=== PATIENT | female | born 1945 | race Caucasian/White ===

== ENCOUNTER 2018-02-26 17:29 | Inpatient (IN) | payer MEDICARE, BC ==
[~2018-02-26] VITALS: Ht 162.6 cm; Wt 90.0 kg
[2018-02-26] VITALS (9 sets, daily range): BP systolic 103–211; BP diastolic 64–97; PULSE 74–85; RESP 18–20; TEMP 97.2–98.4; O2SAT 96–99
--- NOTE | 2018-02-26 17:55 | PD ---
HPI Chief Complaint: Fall Time Seen by Provider: 17:45 Travel History International Travel<30 days: No Contact w/Intl Traveler<30days: No Traveled to known affect area: No History of Present Illness HPI 72-year-old female presents via EMS for evaluation after a reported fall. Reportedly the patient slipped on the wet tile pool deck and fell backwards, hitting the back of her head against the ground. There was reported loss of consciousness and reportedly per EMS there is initial repetitive questioning which has since resolved. The patient is very hard of hearing. She is complaining of pain in her lower back and head. Pain is aggravated by falling. She denies any pain in her neck, chest, abdomen, shortness of breath, pain in the extremities. Last tetanus vaccination unknown. [facility] Social History Tobacco Use: No Allergies-Medications (Allergen,Severity, Reaction): Coded Allergies: No Known Allergies (Unverified , 02/26/18) Reported Meds & Prescriptions Reported Meds & Active Scripts Active Reported Tramadol (Tramadol HCl) 50 Mg Tab 50 Mg PO Q6H PRN Xanax (Alprazolam) 0.5 Mg Tab 0.5 Mg PO DAILY PRN Lisinopril 10 Mg Tab 10 Mg PO DAILY Fluoxetine (Fluoxetine HCl) 10 Mg Tab 10 Mg PO DAILY Review of Systems Except as stated in HPI: all other systems reviewed are Neg Physical Exam Narrative GENERAL: Well-developed well-nourished female no acute distress cervical collar in place laying on backboard. The patient was logrolled off the backboard using spinal precautions. SKIN: Warm and dry. There is matted blood to the occipital scalp. HEAD: Skin as noted above. Normocephalic. EYES: Pupils equal and round. No scleral icterus. No injection or drainage. ENT: No nasal bleeding or discharge. Mucous membranes pink and moist. NECK: Trachea midline. No JVD. CARDIOVASCULAR: Regular rate and rhythm. No murmur appreciated. RESPIRATORY: No accessory muscle use. Clear to auscultation. Breath sounds equal bilaterally. GASTROINTESTINAL: Abdomen soft, non-tender, nondistended. Hepatic and splenic margins not palpable. MUSCULOSKELETAL: No obvious deformities. NEUROLOGICAL: Awake and alert. No obvious cranial nerve deficits. Motor grossly within normal limits. Normal speech. Data Data Last Documented VS Vital Signs Date Time Temp Pulse Resp B/P (MAP) Pulse Ox O2 Delivery O2 Flow Rate FiO2 02/26/18 19:30 80 18 183/72 (109) 98 Room Air 02/26/18 17:34 97.2 Orders Orders Basic Metabolic Panel (Bmp) (02/26/18 17:50) Complete Blood Count With Diff (02/26/18 17:50) Prothrombin Time / Inr (Pt) (02/26/18 17:50) Act Partial Throm Time (Ptt) (02/26/18 17:50) Type And Screen (02/26/18 17:50) Ct Brain W/O Iv Contrast(Rout) (02/26/18 17:50) Ct Cerv Spine W/O Contrast (02/26/18 17:50) Iv Access Insert/Monitor (02/26/18 17:50) Pelvis, Ap Only (Routine) (02/26/18 ) Spine, Lumbar - Ltd (Ap & Lat) (02/26/18 ) Lidocai-Epi 1%-1:100,000 Inj (Xylocaine- (02/26/18 18:00) Labetalol Inj (Trandate Inj) (02/26/18 18:00) Tetanus/Diphtheria Tox Adult (Tetanus/Di (02/26/18 18:00) Nicardipine Inj (Cardene Inj) (02/26/18 18:45) Consult Neurosurgery (02/26/18 ) Admit Order (Ed Use Only) (02/26/18 19:26) Labs Laboratory Tests Test 02/26/18 18:13 White Blood Count 9.8 TH/MM3 Red Blood Count 4.80 MIL/MM3 Hemoglobin 13.3 GM/DL Hematocrit 40.6 % Mean Corpuscular Volume 84.6 FL Mean Corpuscular Hemoglobin 27.7 PG Mean Corpuscular Hemoglobin Concent 32.8 % Red Cell Distribution Width 15.9 % Platelet Count 197 TH/MM3 Mean Platelet Volume 9.3 FL Neutrophils (%) (Auto) 68.2 % Lymphocytes (%) (Auto) 18.9 % Monocytes (%) (Auto) 9.9 % Eosinophils (%) (Auto) 2.5 % Basophils (%) (Auto) 0.5 % Neutrophils # (Auto) 6.7 TH/MM3 Lymphocytes # (Auto) 1.9 TH/MM3 Monocytes # (Auto) 1.0 TH/MM3 Eosinophils # (Auto) 0.2 TH/MM3 Basophils # (Auto) 0.0 TH/MM3 CBC Comment DIFF FINAL Differential Comment Prothrombin Time 10.7 SEC Prothromb Time International Ratio 1.1 RATIO Activated Partial Thromboplast Time 23.8 SEC Blood Urea Nitrogen 24 MG/DL Creatinine 0.72 MG/DL Random Glucose 130 MG/DL Calcium Level 9.3 MG/DL Sodium Level 141 MEQ/L Potassium Level 4.5 MEQ/L Chloride Level 106 MEQ/L Carbon Dioxide Level 29.2 MEQ/L Anion Gap 6 MEQ/L Estimat Glomerular Filtration Rate 80 ML/MIN MDM Medical Decision Making Medical Screen Exam Complete: Yes Emergency Medical Condition: Yes Medical Record Reviewed: Yes Differential Diagnosis Closed head injury, intracranial hemorrhage, skull fracture, scalp laceration Narrative Course CT imaging of the brain, cervical spine, x-ray of the lumbar spine and pelvis have been ordered. Lab work has been ordered. The patient is hypertensive, IV labetalol ordered. Tetanus status updated. CT the brain reveals a thin left subdural hematoma. Cardene drip has been ordered. Neurosurgery page has been placed. At the end of my shift the patient was signed out to the oncoming provider. Saad Camp Feb 26, 2018 17:55
[2018-02-26] MEDS ORDERED: LABETALOL HCL 100 MG/20 ML VIAL IV PUSH ONE (18:00)
[2018-02-26] MEDS ORDERED: LIDOCAINE 1%/EPINEPHrine 1:100,000 SOLN 20 ML VIAL INFIL ONE (18:00)
[2018-02-26] MEDS ORDERED: TETANUS/DIPHTHERIA TOXOID ADULT 0.5 ML VIAL IM ONE (18:00)
[2018-02-26] MEDS ORDERED: ALPR.5 PO (18:21)
[2018-02-26] MEDS ORDERED: FLUO10TA PO (18:21)
[2018-02-26] MEDS ORDERED: LISI10TA3 PO (18:21)
[2018-02-26] MEDS ORDERED: TRAM50TA PO (18:21)
[2018-02-26 18:22] LABS: AUTOMATED NEUTROPHIL # 6.7 TH/MM3 (1.8-7.7); BASOPHIL % 0.5 % (0.0-2.0); EOSINOPHIL # 0.2 TH/MM3 (0-0.4); EOSINOPHIL % 2.5 % (0.0-4.0); HEMATOCRIT 40.6 % (35.0-46.0); HEMOGLOBIN 13.3 GM/DL (11.6-15.3); LYMPH % 18.9 % (9.0-44.0); LYMPHOCYTE # 1.9 TH/MM3 (1.0-4.8); MEAN CELL VOLUME 84.6 FL (80.0-100.0); MEAN CORPUSCULAR HEMOGLOBIN 27.7 PG (27.0-34.0); MEAN CORPUSCULAR HGB CONC 32.8 % (32.0-36.0); MEAN PLATELET VOLUME 9.3 FL (7.0-11.0); MONO % 9.9 % (0.0-8.0); NEUT % 68.2 % (16.0-70.0); PLATELET COUNT 197 TH/MM3 (150-450); RED CELL DISTRIBUTION WIDTH 15.9 % (11.6-17.2); WHITE BLOOD COUNT 9.8 TH/MM3 (4.0-11.0)
[2018-02-26 18:33] LABS: INTERNATIONAL NORMALIZED RATIO 1.1 RATIO; PROTHROMBIN TIME - PATIENT 10.7 SEC (9.8-11.6)
[2018-02-26 18:45] LABS: BICARBONATE 29.2 MEQ/L (21.0-32.0); CALCIUM 9.3 MG/DL (8.5-10.1); CREATININE 0.72 MG/DL (0.50-1.00)
[2018-02-26] MEDS ORDERED: niCARdipine INJ 25 MG in SODIUM CHLOR 0.9% 250 ML INJ 240 ML IV ONE (18:45)
--- NOTE | 2018-02-26 18:50 | RADRPT ---
EXAM DATE/TIME: 02/26/2018 18:13 [facility] COMPARISON: No previous studies available for comparison. INDICATIONS : Trauma; fall. RADIATION DOSE: 66.34 CTDIvol (mGy) MEDICAL HISTORY : None SURGICAL HISTORY : None. ENCOUNTER: Initial ACUITY: 1 day PAIN SCALE: 7/10 LOCATION: cranial TECHNIQUE: Multiple contiguous axial images were obtained of the head. Using automated exposure control and adj ustment of the mA and/or kV according to patient size, radiation dose was kept as low as reasonably a chievable to obtain optimal diagnostic quality images. DICOM format image data is available electro nically for review and comparison. FINDINGS: There is a very thin left frontal and temporal subdural hematoma. No significant associated mass effe ct. No evidence of drainable hemorrhage. Patchy diminished attenuation in deep white matter is likely microvascular ischemic. There is no evidence of brain mass. There is no evidence suggest acute infar ction. There is no evidence of skull fracture. There is right lateral periorbital soft tissue swelling. CONCLUSION: Thin left subdural hematoma Giacomo Funes MD on February 26, 2018 at 18:45 Board Certified Radiologist. This report was verified electronically.
--- NOTE | 2018-02-26 18:55 | RADRPT ---
EXAM DATE/TIME: 02/26/2018 18:24 [facility] COMPARISON: CT BRAIN W/O CONTRAST, February 26, 2018, 18:13. INDICATIONS : Trauma; fall. RADIATION DOSE: 25.78 CTDIvol (mGy) MEDICAL HISTORY : None SURGICAL HISTORY : None. ENCOUNTER: Initial ACUITY: 1 day PAIN SCALE: 7/10 LOCATION: neck TECHNIQUE: Volumetric scanning of the cervical spine was performed. Multiplanar reconstructions in the sagittal, coronal and oblique axial planes were performed. Using automated exposure control and adjustment o f the mA and/or kV according to patient size, radiation dose was kept as low as reasonably achievable to obtain optimal diagnostic quality images. DICOM format image data is available electronically f or review and comparison. FINDINGS: VERTEBRAE: Normal vertebral body height. ALIGNMENT: There is mild anterior subluxation of C3 on C4 which appears to be associated with degenerative meadows e at the facet joints. OTHER: There is fluid in the right mastoid air cells. It appears to be subtle fracturing through the right p etrous temporal bone. There is a small focus of air within the external auditory canal surrounds by f luid and a small amount of air seen in the jugular fossa around the right temporal bone. There is flu id in the external auditory canal. There is fluid in the middle ear on the right side. C2-C3: The bony spinal canal is normal in size. No evidence of disc bulge or herniation. The neural forami na are bilaterally patent. There is mild left facet hypertrophy. C3-C4: Again there is anterior subluxation of C3 on C4 in the order of 3 mm. There is bilateral facet hypert rophy. Significant stenosis is not seen. The neural foramina are patent bilaterally. C4-C5: The disc demonstrates decreased height. There is diffuse disc bulge and osteophytic ridging causing a mild impression on the thecal sac. There is uncovertebral and facet hypertrophy. There is narrowing of the right neural foramina. The left neural foramina is patent. C5-C6: The disc demonstrates decreased height. There is diffuse disc bulge and osteophytic ridging causing a moderate impression on the thecal sac. There is uncovertebral and facet hypertrophy. The neural fora fletcher are narrowed bilaterally. C6-C7: The disc demonstrates decreased height. There is diffuse disc bulge and osteophytic ridging causing a mild impression on the thecal sac. There is uncovertebral and facet hypertrophy. The neural foramina are bilaterally patent. C7-T1: The bony spinal canal is normal in size. No evidence of disc bulge or herniation. The neural forami na are bilaterally patent. CONCLUSION: 1. No acute bony abnormalities seen in the cervical spine. 2. Suspected subtle fracturing at the right Rosa temporal bone. 3. Degenerative change in the cervical spine as described above. Giacomo Brantley MD on February 26, 2018 at 18:43 Board Certified Radiologist. This report was verified electronically.
--- NOTE | 2018-02-26 19:28 | RADRPT ---
EXAM DATE/TIME: 02/26/2018 18:44 [facility] COMPARISON: No previous studies available for comparison. INDICATIONS : Fall trauma. MEDICAL HISTORY : None. SURGICAL HISTORY : None. ENCOUNTER: Initial ACUITY: 1 day PAIN SCORE: Non-responsive. LOCATION: Bilateral back FINDINGS: There is grade 2 anterior spondylolisthesis of L5 on S1. Pars defects are present. There is anterior marginal osteophytes throughout the lumbar spine including at the L5-S1 level. There is disc space na rrowing throughout the lumbar spine. CONCLUSION: Chronic degenerative changes including grade 2 anterior spondylolisthesis of L5 on S1. Giacomo Brantley MD on February 26, 2018 at 19:23 Board Certified Radiologist. This report was verified electronically.
--- NOTE | 2018-02-26 19:31 | RADRPT ---
EXAM DATE/TIME: 02/26/2018 18:42 [facility] COMPARISON: SPINE LUMBAR LTD (AP & LAT), February 26, 2018, 18:44. INDICATIONS : Fall trauma. MEDICAL HISTORY : None. SURGICAL HISTORY : None. ENCOUNTER: Initial ACUITY: 1 day PAIN SCORE: Non-responsive. LOCATION: Bilateral pelvis FINDINGS: A single frontal view of the pelvis demonstrates no evidence of a definite fracture. The bony pelvic ring is intact. Bony mineralization is normal. The soft tissues are intact. There is degenerative change in the lumbar spine. There is hypertrophic change seen adjacent to the iliac crests and adjace nt to the greater trochanters. CONCLUSION: No definite fracture is seen. If there is continued clinical concern for fracture, a CT could be obta ined. Giacomo Brantley MD on February 26, 2018 at 19:26 Board Certified Radiologist. This report was verified electronically.
[2018-02-26] MEDS ORDERED: MORPHINE SULFATE 2 MG/ML SYRINGE IV PUSH ONE (19:45)
[2018-02-26] MEDS ORDERED: ONDANSETRON HCL 4 MG/2 ML VIAL IV PUSH ONE (19:45)
--- NOTE | 2018-02-26 20:00 | PD ---
Physical Exam Time Seen by Provider: 19:59 Narrative Please refer to previous providers documentation for details surrounding the patient's current visit. Data Data Last Documented VS Vital Signs Date Time Temp Pulse Resp B/P (MAP) Pulse Ox O2 Delivery O2 Flow Rate FiO2 02/26/18 19:48 79 18 135/73 (93) 97 Room Air 02/26/18 17:34 97.2 Orders Orders Basic Metabolic Panel (Bmp) (02/26/18 17:50) Complete Blood Count With Diff (02/26/18 17:50) Prothrombin Time / Inr (Pt) (02/26/18 17:50) Act Partial Throm Time (Ptt) (02/26/18 17:50) Type And Screen (02/26/18 17:50) Ct Brain W/O Iv Contrast(Rout) (02/26/18 17:50) Ct Cerv Spine W/O Contrast (02/26/18 17:50) Iv Access Insert/Monitor (02/26/18 17:50) Pelvis, Ap Only (Routine) (02/26/18 ) Spine, Lumbar - Ltd (Ap & Lat) (02/26/18 ) Lidocai-Epi 1%-1:100,000 Inj (Xylocaine- (02/26/18 18:00) Labetalol Inj (Trandate Inj) (02/26/18 18:00) Tetanus/Diphtheria Tox Adult (Tetanus/Di (02/26/18 18:00) Nicardipine Inj (Cardene Inj) (02/26/18 18:45) Consult Neurosurgery (02/26/18 ) Admit Order (Ed Use Only) (02/26/18 19:26) Morphine Inj (Morphine Inj) (02/26/18 19:45) Ondansetron Inj (Zofran Inj) (02/26/18 19:45) (Hub Use Only)Inp Phy Cons/Ref (02/26/18 ) Labs Laboratory Tests Test 02/26/18 18:13 White Blood Count 9.8 TH/MM3 Red Blood Count 4.80 MIL/MM3 Hemoglobin 13.3 GM/DL Hematocrit 40.6 % Mean Corpuscular Volume 84.6 FL Mean Corpuscular Hemoglobin 27.7 PG Mean Corpuscular Hemoglobin Concent 32.8 % Red Cell Distribution Width 15.9 % Platelet Count 197 TH/MM3 Mean Platelet Volume 9.3 FL Neutrophils (%) (Auto) 68.2 % Lymphocytes (%) (Auto) 18.9 % Monocytes (%) (Auto) 9.9 % Eosinophils (%) (Auto) 2.5 % Basophils (%) (Auto) 0.5 % Neutrophils # (Auto) 6.7 TH/MM3 Lymphocytes # (Auto) 1.9 TH/MM3 Monocytes # (Auto) 1.0 TH/MM3 Eosinophils # (Auto) 0.2 TH/MM3 Basophils # (Auto) 0.0 TH/MM3 CBC Comment DIFF FINAL Differential Comment Prothrombin Time 10.7 SEC Prothromb Time International Ratio 1.1 RATIO Activated Partial Thromboplast Time 23.8 SEC Blood Urea Nitrogen 24 MG/DL Creatinine 0.72 MG/DL Random Glucose 130 MG/DL Calcium Level 9.3 MG/DL Sodium Level 141 MEQ/L Potassium Level 4.5 MEQ/L Chloride Level 106 MEQ/L Carbon Dioxide Level 29.2 MEQ/L Anion Gap 6 MEQ/L Estimat Glomerular Filtration Rate 80 ML/MIN MDM Medical Record Reviewed: Yes Supervised Visit with NATE: No Narrative Course Patient was signed out to me awaiting neurosurgery callback. Dr. Fernandes, my attending physician spoke with Dr. Heard in regards to the patient's subdural hematoma as well as subtle temporal fracture. Patient does have continued bleeding from the right ear, increasing suspect for temporal bone fracture. There is no obvious laceration in the posterior scalp. Dr. Fernandes has spoke with Dr. Mccloud, perinatal breastfeeding assistant. Patient is on a nicardipine drip for blood pressure control. She has been treated for pain. Plan has been discussed with the patient and her . Patient is very hard of hearing but has been does verbalize understanding.. Diagnosis Primary Impression: Subdural hematoma Additional Impression: Temporal bone fracture Qualified Codes: S02.19XA - Other fracture of base of skull, initial encounter for closed fracture Admitting Information Admitting Physician Requests: Admit Condition: Stable Stacey Correia CHAD Feb 26, 2018 20:00
[2018-02-26] MEDS ORDERED: BISACODYL 10 MG SUPP RECTAL PRN (22:00)
[2018-02-26] MEDS ORDERED: RESP: ALBUTEROL 2.5 MG/3 ML NEB (PRN) INH (22:00)
[2018-02-26] MEDS ORDERED: MORPHINE SULFATE 2 MG/ML SYRINGE IV PUSH PRN (22:00)
[2018-02-26] MEDS ORDERED: CHLORHEXIDINE GLUCONATE 2 % 1 PACK (2 CLOTHS) TOP PRN (22:00)
[2018-02-26] MEDS ORDERED: SODIUM CHLORIDE 0.9% FLUSH 10 ML FLUSH IV FLUSH PRN (22:00)
[2018-02-26] MEDS ORDERED: SENNOSIDES 8.6 MG TAB PO PRN (22:00)
[2018-02-26] MEDS ORDERED: MAGNESIUM HYDROXIDE SUSP 30 ML CUP PO PRN (22:00)
[2018-02-26] MEDS ORDERED: ACETAMINOPHEN 325 MG TAB PO PRN (22:00)
[2018-02-26] MEDS ORDERED: LACTULOSE SYRUP 20 GM/30 ML CUP PO PRN (22:00)
[2018-02-26] MEDS ORDERED: MISCELLANEOUS NURSING INFORMATION XX SCH (22:00)
[2018-02-26] MEDS ORDERED: niCARdipine INJ 25 MG in SODIUM CHLOR 0.9% 250 ML INJ 240 ML IV PRN (22:15)
[2018-02-26] MEDS: CHLORHEXIDINE GLUCONATE 2 % 1 PACK (2 CLOTHS) TOP SCH (23:00)
[2018-02-26] MEDS: ACETAMINOPHEN/HYDROcodone 325 MG/5 MG TAB PO PRN (23:59)
[2018-02-26] MEDS: ONDANSETRON HCL 4 MG/2 ML VIAL IV PUSH PRN (23:59)
[2018-02-27] VITALS (29 sets, daily range): BP systolic 120–182; BP diastolic 58–98; PULSE 70–90; RESP 14–41; TEMP 98–98.5; O2SAT 95–99
--- NOTE | 2018-02-27 06:12 | HHI.HP ---
HPI Service Critical Care Medicine Primary Care Physician Dr. Hoang at [facility] In [place], [place] Admission Diagnosis Subdural hemorrhage. Scalp laceration. Skull fracture. Diagnosis: Travel History International Travel<30 Days: No Contact w/Intl Traveler <30 Da: No Traveled to Known Affected Are: No History of Present Illness 72-year-old female with past medical history of hypertension who presents to [facility] emergency department after she slipped and fell and hit her head on tile mino. There was reported loss of consciousness. No seizure activity. No bowel or bladder incontinence. There is repetitive questioning at the scene but GCS 15 on arrival. She is very hard of hearing and her hearing aids were damaged after the fall so difficult to obtain history from her. She was complaining of headache. No nausea, vomiting, photophobia. CT brain demonstrate created a small right frontotemporal subdural hematoma without shift. CCM has been consulted for admission. 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 daily Tramadol 50 mill grams p.o. every 6 hours Fluoxetine 10 mg p.o. daily Xanax 0.5 mill grams p.o. daily Family History Mother of CHF at age 72 Father of prostate cancer at age 81 Social History Previously smoked but quit many years ago. No alcohol use No illicit drug use Lives in [place] but [place] in [place]. Daughter lives about 2 hours away from her in [place]. has Parkinson's. Her needs to get back to [place] March 14 to address some medical issues of his own Physical Exam Vital Signs Vital Signs Date Time Temp Pulse Resp B/P (MAP) Pulse Ox O2 Delivery O2 Flow Rate FiO2 02/27/18 06:00 80 02/27/18 04:00 98.5 79 18 138/61 (86) 99 02/27/18 04:00 79 02/27/18 02:00 83 02/27/18 01:40 81 119/58 02/27/18 01:00 83 135/64 02/27/18 00:00 81 02/27/18 00:00 98.4 84 25 152/71 (98) 97 02/27/18 00:00 84 152/71 02/26/18 23:01 98.4 82 20 161/75 (103) 96 02/26/18 23:00 85 02/26/18 22:43 02/26/18 22:21 84 18 112/64 (80) 97 Room Air 02/26/18 21:24 86 103/68 02/26/18 21:23 82 18 103/68 (80) 99 Room Air 02/26/18 19:48 79 18 135/73 (93) 97 Room Air 02/26/18 19:30 80 18 183/72 (109) 98 Room Air 02/26/18 19:24 79 18 154/75 (101) 99 Room Air 02/26/18 19:07 80 211/98 02/26/18 18:00 80 18 209/97 (134) 99 Room Air 02/26/18 17:34 97.2 74 18 211/91 (131) 97 Physical Exam GENERAL: Well-nourished, well-developed patient who is laying in bed, awake and alert but extremely hard of hearing. SKIN: Warm and dry. Well perfused. HEAD: Normocephalic. EYES: Periorbital ecchymosis. Pupils equal and round 3 mm and reactive bilaterally. No scleral icterus. No injection or drainage. ENT: No nasal bleeding or discharge. Mucous membranes pink and moist. NECK: Trachea midline. No JVD. CARDIOVASCULAR: Regular rate and rhythm. No murmurs rubs or gallops. RESPIRATORY: No accessory muscle use. Clear to auscultation. Breath sounds equal bilaterally. On room air GASTROINTESTINAL: Abdomen soft, non-tender, nondistended. Bowel sounds present. MUSCULOSKELETAL: Extremities without clubbing, cyanosis, or edema. No obvious deformities. NEUROLOGICAL: Awake and alert. No obvious cranial nerve deficits. Extraocular movements intact. No pronator drift. Sensation intact. Strength 5 out of 5 in all extremities. Laboratory Laboratory Tests Test 02/26/18 18:13 02/26/18 23:00 White Blood Count 9.8 Red Blood Count 4.80 Hemoglobin 13.3 Hematocrit 40.6 Mean Corpuscular Volume 84.6 Mean Corpuscular Hemoglobin 27.7 Mean Corpuscular Hemoglobin Concent 32.8 Red Cell Distribution Width 15.9 Platelet Count 197 Mean Platelet Volume 9.3 Neutrophils (%) (Auto) 68.2 Lymphocytes (%) (Auto) 18.9 Monocytes (%) (Auto) 9.9 Eosinophils (%) (Auto) 2.5 Basophils (%) (Auto) 0.5 Neutrophils # (Auto) 6.7 Lymphocytes # (Auto) 1.9 Monocytes # (Auto) 1.0 Eosinophils # (Auto) 0.2 Basophils # (Auto) 0.0 CBC Comment DIFF FINAL Differential Comment Prothrombin Time 10.7 Prothromb Time International Ratio 1.1 Activated Partial Thromboplast Time 23.8 Blood Urea Nitrogen 24 Creatinine 0.72 Random Glucose 130 Calcium Level 9.3 Sodium Level 141 Potassium Level 4.5 Chloride Level 106 Carbon Dioxide Level 29.2 Anion Gap 6 Estimat Glomerular Filtration Rate 80 Nasal Screen MRSA (PCR) MRSA NOT DETECTED Result Diagram: 02/26/18181202/26/181812 Caprini VTE Risk Assessment Caprini VTE Risk Assessment: Mod/High Risk (score >= 2) VTE Pharm Contraindication: Documented (Subdural hematoma) Caprini Risk Assessment Model Point Value = 1 Point Value = 2 Point Value = 3 Point Value = 5 Age 41-60 Minor surgery BMI > 25 kg/m2 Swollen legs Varicose veins or History of unexplained or recurrent spontaneous Oral contraceptives or hormone replacement Sepsis (< 1 month) Serious lung disease, including pneumonia (< 1 month) Abnormal pulmonary function Acute myocardial infarction Congestive heart failure (< 1 month) History of inflammatory bowel disease Medical patient at bed rest Age 61-74 Arthroscopic surgery Major open surgery (> 45 min) Laparoscopic surgery (> 45 min) Malignancy Confined to bed (> 72 hours) Immobilizing plaster cast Central venous access Age >= 75 History of VTE Family history of VTE Factor V Leiden Prothrombin [id number] Lupus anticoagulant Anticardiolipin antibodies Elevated serum homocysteine Heparin-induced thrombocytopenia Other congenital or acquired thrombophilia Stroke (< 1 month) Elective arthroplasty Hip, pelvis, or leg fracture Acute spinal cord injury (< 1 month) Prophylaxis Regimen Total Risk Factor Score Risk Level Prophylaxis Regimen 0-1 Low Early ambulation 2 Moderate Order ONE of the following: *Sequential Compression Device (SCD) *Heparin 5000 units SQ BID 3-4 Higher Order ONE of the following medications: *Heparin 5000 units SQ TID *Enoxaparin/Lovenox 40 mg SQ daily (WT < 150 kg, CrCl > 30 mL/min) *Enoxaparin/Lovenox 30 mg SQ daily (WT < 150 kg, CrCl > 10-29 mL/min) *Enoxaparin/Lovenox 30 mg SQ BID (WT < 150 kg, CrCl > 30 mL/min) AND/OR *Sequential Compression Device (SCD) 5 or more Highest Order ONE of the following medications: *Heparin 5000 units SQ TID (Preferred with Epidurals) *Enoxaparin/Lovenox 40 mg SQ daily (WT < 150 kg, CrCl > 30 mL/min) *Enoxaparin/Lovenox 30 mg SQ daily (WT < 150 kg, CrCl > 10-29 mL/min) *Enoxaparin/Lovenox 30 mg SQ BID (WT < 150 kg, CrCl > 30 mL/min) AND *Sequential Compression Device (SCD) Assessment and Plan Problem List: (1) HTN (hypertension) ICD Code: I10 - Essential (primary) hypertension Status: Chronic (2) Anxiety ICD Code: F41.9 - Anxiety disorder, unspecified Status: Chronic (3) Osteoarthritis ICD Code: M19.90 - Unspecified osteoarthritis, unspecified site Status: Chronic (4) 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 Neurosurgery consulted, Dr. Heard CT C-spine was negative for acute C-spine fracture Continue fluoxetine 10 mg p.o. daily Tylenol/Lortab as needed for headache Morphine as needed for breakthrough RESP: Prior tobacco abuse RA CV: Hypertension Continue lisinopril 10 mg p.o. daily GI: Clear liquid diet. Advance to regular diet if CT stable FEN/RENAL: Voiding. Monitor intake and output. Monitor electrolytes and replace as indicated ID: Monitor for signs and symptoms of infection HEME: No acute hematologic issues ENDO blood glucose at target PROPH: SCDs for DVT prophylaxis. Avoid pharmacologic DVT prophylaxis at this time due to acute subdural hematoma. Famotidine p.o. for stress ulcer prophylaxis ACCESS: Peripheral IV providing adequate access at this time. Patient is full code I have discussed her condition with patient's daughter and have obtained much of the past medical history from her. She lives in [place] and is planning on flying down [place] at 9 PM. She states that patient's has been quite distraught and wishes that the staff would communicate with her regarding the results of the CT scan and any major changes. Level 3 H&P Problem Qualifiers (1) Temporal bone fracture: Qualified Codes: S02.19XA - Other fracture of base of skull, initial encounter for closed fracture Yue Mccloud MD Feb 27, 2018 06:11
[2018-02-27 06:46] LABS: AUTOMATED NEUTROPHIL # 10.9 TH/MM3 (1.8-7.7); BASOPHIL % 0.1 % (0.0-2.0); EOSINOPHIL % 0.1 % (0.0-4.0); HEMOGLOBIN 12.5 GM/DL (11.6-15.3); LYMPHOCYTE # 1.6 TH/MM3 (1.0-4.8); MEAN CELL VOLUME 83.7 FL (80.0-100.0); MEAN CORPUSCULAR HEMOGLOBIN 27.4 PG (27.0-34.0); MEAN CORPUSCULAR HGB CONC 32.8 % (32.0-36.0); MONO % 7.7 % (0.0-8.0); NEUT % 80.1 % (16.0-70.0); PLATELET COUNT 202 TH/MM3 (150-450); RED BLOOD COUNT 4.55 MIL/MM3 (4.00-5.30); RED CELL DISTRIBUTION WIDTH 15.9 % (11.6-17.2); WHITE BLOOD COUNT 13.5 TH/MM3 (4.0-11.0)
[2018-02-27 07:12] LABS: CREATININE 0.66 MG/DL (0.50-1.00)
--- NOTE | 2018-02-27 08:20 | RADRPT ---
EXAM DATE/TIME: 02/27/2018 07:58 [place] COMPARISON: CT BRAIN W/O CONTRAST, February 26, 2018, 18:13. INDICATIONS : Subdural hematoma RADIATION DOSE: 37.78 CTDIvol (mGy) MEDICAL HISTORY : None SURGICAL HISTORY : None. ENCOUNTER: Subsequent ACUITY: 2 days PAIN SCALE: 2/10 LOCATION: cranial TECHNIQUE: Multiple contiguous axial images were obtained of the head. Using automated exposure control and adj ustment of the mA and/or kV according to patient size, radiation dose was kept as low as reasonably a chievable to obtain optimal diagnostic quality images. DICOM format image data is available electro nically for review and comparison. FINDINGS: CEREBRUM: Left frontotemporal subdural hemorrhage appears unchanged measuring 6 mm in maximum dimension. Puncta te hemorrhage in the right frontal parafalcine region noted. Minimal subarachnoid hemorrhage left par ietal region. There may also be some minimal hemorrhage in the right parietal region but to a lesser degree. The ventricles are normal for age. No evidence of midline shift, mass lesion, or acute infar ction. POSTERIOR FOSSA: The cerebellum and brainstem are intact. The 4th ventricle is midline. The cerebellopontine angle i s unremarkable. EXTRACRANIAL: The visualized portion of the orbits is intact. SKULL: The calvaria is intact. No evidence of skull fracture. CONCLUSION: 1. Tiny left frontotemporal subdural hemorrhage is essentially unchanged. 2. Tiny punctate right frontal parafalcine hemorrhage. 3. Minimal subarachnoid hemorrhage. Augustine Bobo MD on February 27, 2018 at 8:16 Board Certified Radiologist. This report was verified electronically.
[2018-02-27] MEDS: FLUoxetine HCL 10 MG CAP PO SCH (09:00)
[2018-02-27] MEDS: LISINOPRIL 10 MG TAB PO SCH ×2 (09:00→09:42)
[2018-02-27] MEDS: FAMOTIDINE 20 MG TAB PO SCH ×3 (09:00→19:46)
[2018-02-27] MEDS: DOCUSATE SODIUM 50 MG/SENNA 8.6 MG TAB PO SCH ×3 (09:00→19:46)
[2018-02-27] MEDS: ACETAMINOPHEN/HYDROcodone 325 MG/5 MG TAB PO PRN ×3 (09:42→22:21)
[2018-02-27] MEDS: SODIUM CHLORIDE 0.9% FLUSH 10 ML FLUSH IV FLUSH SCH ×2 (09:44→19:46)
--- NOTE | 2018-02-27 10:35 | PD.CONS ---
(Price Heard MD) HPI Consult Requested By Primary Care Physician No Primary Care Physician (Price Heard MD) Service Neurosurgery Consult Requested By Critical care Reason for Consult Intracranial hemorrhage History of Present Illness Ms. Chang is a 72-year-old female who suffered a slip and fall at the pool deck yesterday hitting her head with positive loss of consciousness. There is no seizure-like activities, tongue biting, bowel or bladder incontinence. She was reported to have a GCS of 15 on arrival. She has chronic hearing loss, her hearing aids were damage after the fall. She has complained of headaches, there was reported blood in her ear canal. CT of her head shows a small right frontotemporal subdural hematoma. She underwent a follow-up CT brain this morning which is completed. Neurosurgery evaluation requested. The patient reports of stable right sided head pain, she denies focal weakness, seizures, vomiting. (Magnolia Clancy) Review of Systems Constitutional: DENIES: Fever, Chills Eyes: DENIES: Diplopia, Vision loss Ears, nose, mouth, throat: COMPLAINS OF: Hearing loss Respiratory: DENIES: Apneas, Hemoptysis Cardiovascular: DENIES: Chest pain Gastrointestinal: DENIES: Nausea, Vomiting Genitourinary: DENIES: Urinary incontinence Neurologic: COMPLAINS OF: Headache, DENIES: Localized weakness, Seizures (Magnolia Clancy) Past Family Social History Allergies: Coded Allergies: No Known Allergies (Unverified , 02/26/18) Past Medical History Hypertension Hearing loss Osteoarthritis Anxiety Pituitary cyst History of viral hepatitis Past Surgical History Knee replacement Foot reconstruction surgery Reported Medications Lisinopril 10 mg p.o. daily Tramadol 50 mill grams p.o. every 6 hours Fluoxetine 10 mg p.o. daily Xanax 0.5 mill grams p.o. daily Active Ordered Medications Current Medications Medications (Trade) Dose Ordered Sig/Carlota Route PRN Reason Start Time Stop Time Status Last Admin Dose Admin Sodium Chloride (NS Flush) 2 ml UNSCH PRN IV FLUSH FLUSH AFTER USING IV ACCESS 02/26/18 22:00 Sodium Chloride (NS Flush) 2 ml BID IV FLUSH 02/27/18 09:00 02/27/18 09:44 Acetaminophen (Tylenol) 650 mg Q6H PRN PO PAIN 1-3 OR TEMP >100.4 02/26/18 22:00 Acetaminophen/ Hydrocodone Bitart ([place] 5-325 Mg) 1 tab Q4H PRN PO PAIN 4-10 02/26/18 22:00 02/27/18 09:42 Morphine Sulfate (Morphine Inj) 2 mg Q2H PRN IV PUSH breakthrough pain 6-10 02/26/18 22:00 Famotidine (Pepcid) 20 mg Q12HR PO 02/27/18 09:00 02/27/18 09:42 Ondansetron HCl (Zofran Inj) 4 mg Q6H PRN IV PUSH NAUSEA OR VOMITING 02/26/18 22:00 02/26/18 23:59 Albuterol Sulfate (Albuterol Neb) 2.5 mg Q2HR NEB PRN INH SOB/WHEEZING 02/26/18 22:00 Miscellaneous Information 1 Q361D XX 02/26/18 22:00 02/26/18 22:00 Chlorhexidine Gluconate (Chlorhexidine 2% Cloth) 3 pack Taper DAILY@04 TOP 02/27/18 04:00 02/23/19 03:59 02/26/18 23:00 Chlorhexidine Gluconate (Chlorhexidine 2% Cloth) 3 pack UNSCH PRN TOP HYGIENIC CARE 02/26/18 22:00 Senna/Docusate Sodium (Aury-Colace) 1 tab BID PO 02/27/18 09:00 02/27/18 09:42 Magnesium Hydroxide (Milk Of Magnesia Liq) 30 ml Q12H PRN PO Mild constipation 02/26/18 22:00 Sennosides (Senokot) 17.2 mg Q12H PRN PO Moderate constipation 02/26/18 22:00 Bisacodyl (Dulcolax Supp) 10 mg DAILY PRN RECTAL SEVERE CONSITIPATION/ IF NPO 02/26/18 22:00 Lactulose (Lactulose Liq) 30 ml DAILY PRN PO SEVERE CONSITIPATION/ IF PO 02/26/18 22:00 Fluoxetine HCl (PROzac) 10 mg DAILY PO 02/27/18 09:00 Lisinopril (Prinivil) 10 mg DAILY PO 02/27/18 09:00 02/27/18 09:42 Labetalol HCl (Trandate Inj) 10 mg Q4H PRN IV PUSH SBP >160 02/26/18 22:15 Family History Mother CHF Father prostate cancer Social History Remote history of tobacco use, denies alcohol or illicit drug use She is and lives with her (Magnolia Clancy) Physical Exam Vital Signs Vital Signs Date Time Temp Pulse Resp B/P (MAP) Pulse Ox O2 Delivery O2 Flow Rate FiO2 02/27/18 06:00 80 02/27/18 04:00 98.5 79 18 138/61 (86) 99 02/27/18 04:00 79 02/27/18 02:00 83 02/27/18 01:40 81 119/58 02/27/18 01:00 83 135/64 02/27/18 00:00 81 02/27/18 00:00 98.4 84 25 152/71 (98) 97 02/27/18 00:00 84 152/71 02/26/18 23:01 98.4 82 20 161/75 (103) 96 02/26/18 23:00 85 02/26/18 22:43 02/26/18 22:21 84 18 112/64 (80) 97 Room Air 02/26/18 21:24 86 103/68 02/26/18 21:23 82 18 103/68 (80) 99 Room Air 02/26/18 19:48 79 18 135/73 (93) 97 Room Air 02/26/18 19:30 80 18 183/72 (109) 98 Room Air 02/26/18 19:24 79 18 154/75 (101) 99 Room Air 02/26/18 19:07 80 211/98 02/26/18 18:00 80 18 209/97 (134) 99 Room Air 02/26/18 17:34 97.2 74 18 211/91 (131) 97 Physical Exam The patient is alert, awake and oriented to time, place and person. Speech is fluent. Cranial nerve examination: pupils to be equal, round and reactive to light. Extra-ocular movements are intact. Facial motor and sensory function are normal and symmetrical. Gross hearing appears decreased. Mild bleeding from right EAC Sternocleidomastoid and trapezius muscles are symmetrical. Other cranial nerves are intact. Neck is soft and supple with a good range of motion without pain. Muscle strength is normal in all muscle groups of both upper and lower extremities. Sensory examination is intact to light touch and pin prick in both the upper and lower extremities. Deep tendon reflexes are symmetrical in both upper and lower extremities. There is a bilateral plantar flexion response. Cerebellar examination is unremarkable, without deficits. Lungs are clear Heart regular rhythm and rate Skin warm and dry Laboratory Laboratory Tests Test 02/26/18 18:13 02/26/18 23:00 02/27/18 06:07 White Blood Count 9.8 13.5 Red Blood Count 4.80 4.55 Hemoglobin 13.3 12.5 Hematocrit 40.6 38.0 Mean Corpuscular Volume 84.6 83.7 Mean Corpuscular Hemoglobin 27.7 27.4 Mean Corpuscular Hemoglobin Concent 32.8 32.8 Red Cell Distribution Width 15.9 15.9 Platelet Count 197 202 Mean Platelet Volume 9.3 9.0 Neutrophils (%) (Auto) 68.2 80.1 Lymphocytes (%) (Auto) 18.9 12.0 Monocytes (%) (Auto) 9.9 7.7 Eosinophils (%) (Auto) 2.5 0.1 Basophils (%) (Auto) 0.5 0.1 Neutrophils # (Auto) 6.7 10.9 Lymphocytes # (Auto) 1.9 1.6 Monocytes # (Auto) 1.0 1.0 Eosinophils # (Auto) 0.2 0.0 Basophils # (Auto) 0.0 0.0 CBC Comment DIFF FINAL DIFF FINAL Differential Comment Prothrombin Time 10.7 Prothromb Time International Ratio 1.1 Activated Partial Thromboplast Time 23.8 Blood Urea Nitrogen 24 20 Creatinine 0.72 0.66 Random Glucose 130 166 Calcium Level 9.3 9.0 Sodium Level 141 139 Potassium Level 4.5 4.1 Chloride Level 106 106 Carbon Dioxide Level 29.2 28.0 Anion Gap 6 5 Estimat Glomerular Filtration Rate 80 88 Nasal Screen MRSA (PCR) MRSA NOT DETECTED (Price Heard MD) Result Diagram: 02/27/18 0607 02/27/18 0607 Imaging Last Impressions Head CT 02/27/18 06 Signed Impressions: Service Date/Time: Tuesday, February 27, 2018 07:58 - CONCLUSION: 1. Tiny left frontotemporal subdural hemorrhage is essentially unchanged. 2. Tiny punctate right frontal parafalcine hemorrhage. 3. Minimal subarachnoid hemorrhage. Augustine Bobo MD Cervical Spine CT 02/26/18 1750 Signed Impressions: Service Date/Time: Monday, February 26, 2018 18:24 - CONCLUSION: 1. No acute bony abnormalities seen in the cervical spine. 2. Suspected subtle fracturing at the right Rosa temporal bone. 3. Degenerative change in the cervical spine as described above. Giacomo Brantley MD Pelvis X-Ray 02/26/18 0000 Signed Impressions: Service Date/Time: Monday, February 26, 2018 18:42 - CONCLUSION: No definite fracture is seen. If there is continued clinical concern for fracture, a CT could be obtained. Giacomo Brantley MD Lumbar Spine X-Ray 02/26/18 0000 Signed Impressions: Service Date/Time: Monday, February 26, 2018 18:44 - CONCLUSION: Chronic degenerative changes including grade 2 anterior spondylolisthesis of L5 on S1. Giacomo Brantley MD (Magnolia Clancy) Attending Statement Last [address] 02/27/18 0600 Signed Impressions: Service Date/Time: Tuesday, February 27, 2018 07:58 - CONCLUSION: 1. Tiny left frontotemporal subdural hemorrhage is essentially unchanged. 2. Tiny punctate right frontal parafalcine hemorrhage. 3. Minimal subarachnoid hemorrhage. Augustine Bobo MD Head CT 02/26/18 1750 Signed Impressions: Service Date/Time: Monday, February 26, 2018 18:13 - CONCLUSION: Thin left subdural hematoma Giacomo Funes MD Cervical Spine CT 02/26/18 1750 Signed Impressions: Service Date/Time: Monday, February 26, 2018 18:24 - CONCLUSION: 1. No acute bony abnormalities seen in the cervical spine. 2. Suspected subtle fracturing at the right Rosa temporal bone. 3. Degenerative change in the cervical spine as described above. Giacomo Brantley MD Pelvis X-Ray 02/26/18 0000 Signed Impressions: Service Date/Time: Monday, February 26, 2018 18:42 - CONCLUSION: No definite fracture is seen. If there is continued clinical concern for fracture, a CT could be obtained. Giacomo Brantley MD Lumbar Spine X-Ray 02/26/18 0000 Signed Impressions: Service Date/Time: Monday, February 26, 2018 18:44 - CONCLUSION: Chronic degenerative changes including grade 2 anterior spondylolisthesis of L5 on S1. Giacomo Brantley MD Cerebral concusion. Neuro checks in a serial fashion. A follow-up CT of the head will be obtained in 24 hours. Temporal bone fracture. Possible ottorrhea. Elevate HOV 30 degrees. Watch for CSF leak aggressive pulmonary toilette, nasotracheal suction, and breathing treatments with nebulizers. Nutrition. Oral diet Renal. monitor closely urine output, BUN and creatinine Prior tobacco abuse. Counseled Hypertension. Continue lisinopril 10 mg p.o. daily Endocrine. Monitor serial Acu checks and SSI as needed in detail ID monitor for signs of infection Protonix for stress ulcer prophylaxis Moses hose and SCD's for DVT prophylaxis. The exam, history, and the medical decision-making described in the above note were completed with the assistance of the mid-level provider. I reviewed and agree with the findings presented. I attest that I had a [id number] encounter with the patient on the same day, and personally performed and documented my assessment and findings in the medical record. (Price Heard MD) Price Heard MD Feb 27, 2018 10:35 Magnolia Clancy Feb 27, 2018 12:38
[2018-02-28] VITALS (18 sets, daily range): BP systolic 144–199; BP diastolic 68–89; PULSE 52–75; RESP 13–17; TEMP 97.6–98.7; O2SAT 97–99
[2018-02-28] MEDS: CHLORHEXIDINE GLUCONATE 2 % 1 PACK (2 CLOTHS) TOP SCH (04:00)
[2018-02-28] MEDS: ACETAMINOPHEN/HYDROcodone 325 MG/5 MG TAB PO PRN ×4 (04:45→21:52)
[2018-02-28] MEDS: LABETALOL HCL 100 MG/20 ML VIAL IV PUSH PRN ×2 (05:04→12:43)
[2018-02-28] MEDS: FLUoxetine HCL 10 MG CAP PO SCH (09:00)
[2018-02-28] MEDS: ONDANSETRON HCL 4 MG/2 ML VIAL IV PUSH PRN (09:43)
--- NOTE | 2018-02-28 09:43 | HHI.PR ---
Subjective Remarks Follow-up left subdural hematoma February 28, 2018-patient seen and examined, denies any headache, visual impairments. Denies any weakness Objective Vitals Vital Signs Date Time Temp Pulse Resp B/P (MAP) Pulse Ox O2 Delivery O2 Flow Rate FiO2 02/28/18 09:00 70 02/28/18 08:00 57 02/28/18 07:00 59 02/28/18 05:00 72 199/89 (125) 02/28/18 04:00 72 02/28/18 04:00 73 02/28/18 00:00 66 02/28/18 00:00 98.2 66 188/84 (118) 02/27/18 20:00 87 02/27/18 20:00 98.0 77 182/91 (121) 02/27/18 16:30 73 14 154/72 (99) 96 02/27/18 16:00 75 41 165/98 (120) 95 02/27/18 16:00 72 02/27/18 15:30 73 15 169/77 (107) 02/27/18 15:00 72 18 160/72 (101) 02/27/18 14:30 73 19 167/74 (105) 02/27/18 14:00 70 02/27/18 14:00 76 23 179/81 (113) 02/27/18 13:31 81 29 160/77 (104) 02/27/18 13:00 76 18 147/75 (99) 02/27/18 12:01 129/62 (84) 02/27/18 12:00 73 14 95 02/27/18 12:00 90 02/27/18 11:30 75 18 145/79 (101) 95 02/27/18 11:00 79 23 153/71 (98) 02/27/18 10:30 74 15 144/67 (92) 02/27/18 10:00 83 02/27/18 10:00 80 22 143/68 (93) I/O 02/27/18 02/27/18 02/27/18 02/28/18 02/28/18 02/28/18 07:00 15:00 23:00 07:00 15:00 23:00 Intake Total 270 ml 240 ml 620 ml Output Total 1 ml Balance 270 ml 239 ml 620 ml Intake Oral 120 ml 240 ml 620 ml IV Total 150 ml 0 ml Output Stool Total 1 ml # Voids 2 1 4 # Bowel Movements 1 1 Result Diagram: 02/27/18 0607 02/27/18 0607 Imaging Last Impressions Head CT 02/27/18 0600 Signed Impressions: Service Date/Time: Tuesday, February 27, 2018 07:58 - CONCLUSION: 1. Tiny left frontotemporal subdural hemorrhage is essentially unchanged. 2. Tiny punctate right frontal parafalcine hemorrhage. 3. Minimal subarachnoid hemorrhage. Augustine Bobo MD Cervical Spine CT 02/26/18 1750 Signed Impressions: Service Date/Time: Monday, February 26, 2018 18:24 - CONCLUSION: 1. No acute bony abnormalities seen in the cervical spine. 2. Suspected subtle fracturing at the right Rosa temporal bone. 3. Degenerative change in the cervical spine as described above. Giacomo Brantley MD Pelvis X-Ray 02/26/18 0000 Signed Impressions: Service Date/Time: Monday, February 26, 2018 18:42 - CONCLUSION: No definite fracture is seen. If there is continued clinical concern for fracture, a CT could be obtained. Giacomo Brantley MD Lumbar Spine X-Ray 02/26/18 0000 Signed Impressions: Service Date/Time: Monday, February 26, 2018 18:44 - CONCLUSION: Chronic degenerative changes including grade 2 anterior spondylolisthesis of L5 on S1. Giacomo Brantley MD Objective Remarks GENERAL: NAD SKIN: Warm and dry. HEAD: Normocephalic. EYES: No scleral icterus. No injection or drainage. NECK: Supple, trachea midline. No JVD or lymphadenopathy. CARDIOVASCULAR: Regular rate and rhythm without murmurs, gallops, or rubs. RESPIRATORY: Breath sounds equal bilaterally. No accessory muscle use. GASTROINTESTINAL: Abdomen soft, non-tender, nondistended. MUSCULOSKELETAL: No cyanosis, or edema. BACK: Nontender without obvious deformity. No CVA tenderness. Procedures None A/P Problem List: (1) Subdural hematoma ICD Code: I62.00 - Nontraumatic subdural hemorrhage, unspecified Status: Acute Assessment and Plan 72-year-old female with Fall Acute L subdural hematoma Right non-displaced petrous temporal bone fracture Depression Avoid hyponatremia Neuro checks every hour in ICU Repeat head CT February 27, 2018, stable and unchanged Appreciate input from neurosurgery, Dr. Heard CT C-spine was negative for acute C-spine fracture Continue fluoxetine 10 mg p.o. daily Tylenol/Lortab as needed for headache Morphine as needed for breakthrough Hypertension-labile BP Start hydralazine 25 mg p.o. every 8 hour and continue lisinopril 10 mg p.o. daily PROPH: SCDs for DVT prophylaxis. Avoid pharmacologic DVT prophylaxis at this time due to acute subdural hematoma. Famotidine p.o. for stress ulcer prophylaxis Discharge Planning Discharge patient to home Condition on discharge: Improved Regular Diet as tolerated Ad Cami activity Rx written: Hydralazine 25 mg p.o. q. 8 hour Follow-up with primary care physician 1 week Neurosurgery as needed Augustine Dobbs MD Feb 28, 2018 09:42
[2018-02-28] MEDS ORDERED: HYDR-3799 PO (09:44)
[2018-02-28] MEDS: DOCUSATE SODIUM 50 MG/SENNA 8.6 MG TAB PO SCH ×2 (09:52→21:52)
[2018-02-28] MEDS: FAMOTIDINE 20 MG TAB PO SCH ×2 (09:52→21:52)
[2018-02-28] MEDS: LISINOPRIL 10 MG TAB PO SCH (09:53)
[2018-02-28] MEDS: hydrALAZINE HCL 25 MG TAB PO SCH ×2 (09:57→18:11)
[2018-02-28] MEDS: SODIUM CHLORIDE 0.9% FLUSH 10 ML FLUSH IV FLUSH SCH ×2 (10:02→21:52)
--- NOTE | 2018-02-28 10:12 | HHI.NSPN ---
(Magnolia Clancy) Note Status Status: Progress Note (Magnolia Clancy) Interval History Interval History Ms. Chang is a 72-year-old female who suffered a slip and fall at the pool deck yesterday hitting her head with positive loss of consciousness. There is no seizure-like activities, tongue biting, bowel or bladder incontinence. She was reported to have a GCS of 15 on arrival. She has chronic hearing loss, her hearing aids were damage after the fall. She has complained of headaches, there was reported blood in her ear canal. CT of her head shows a small right frontotemporal subdural hematoma. She underwent a follow-up CT brain this morning which is completed. Neurosurgery evaluation requested. The patient reports of stable right sided head pain, she denies focal weakness, seizures, vomiting. 02/28: no changes neurologically, still without hearing aids - difficulty hearing currently, patient reports continues to have bleeding in the ear. (Magnolia Clancy) Labs, Micro, & Vital Signs Results Date Time Temp Pulse Resp B/P (MAP) Pulse Ox O2 Delivery O2 Flow Rate FiO2 02/28/18 09:00 70 02/28/18 08:00 57 02/28/18 08:00 97.6 57 14 149/73 (98) 99 02/28/18 07:00 59 02/28/18 05:00 72 199/89 (125) 02/28/18 04:00 72 02/28/18 04:00 73 02/28/18 00:00 66 02/28/18 00:00 98.2 66 188/84 (118) 02/27/18 20:00 87 02/27/18 20:00 98.0 77 182/91 (121) 02/27/18 16:30 73 14 154/72 (99) 96 02/27/18 16:00 75 41 165/98 (120) 95 02/27/18 16:00 72 02/27/18 15:30 73 15 169/77 (107) 02/27/18 15:00 72 18 160/72 (101) 02/27/18 14:30 73 19 167/74 (105) 02/27/18 14:00 70 02/27/18 14:00 76 23 179/81 (113) 02/27/18 13:31 81 29 160/77 (104) 02/27/18 13:00 76 18 147/75 (99) 02/27/18 12:01 129/62 (84) 02/27/18 12:00 73 14 95 02/27/18 12:00 90 02/27/18 11:30 75 18 145/79 (101) 95 02/27/18 11:00 79 23 153/71 (98) 02/27/18 10:30 74 15 144/67 (92) 02/27/18 10:00 83 02/27/18 10:00 80 22 143/68 (93) Constitutional Vital Signs Date Time Temp Pulse Resp B/P (MAP) Pulse Ox O2 Delivery O2 Flow Rate FiO2 02/28/18 09:00 70 02/28/18 08:00 57 02/28/18 08:00 97.6 57 14 149/73 (98) 99 02/28/18 07:00 59 02/28/18 05:00 72 199/89 (125) 02/28/18 04:00 72 02/28/18 04:00 73 02/28/18 00:00 66 02/28/18 00:00 98.2 66 188/84 (118) 02/27/18 20:00 87 02/27/18 20:00 98.0 77 182/91 (121) 02/27/18 16:30 73 14 154/72 (99) 96 02/27/18 16:00 75 41 165/98 (120) 95 02/27/18 16:00 72 02/27/18 15:30 73 15 169/77 (107) 02/27/18 15:00 72 18 160/72 (101) 02/27/18 14:30 73 19 167/74 (105) 02/27/18 14:00 70 02/27/18 14:00 76 23 179/81 (113) 02/27/18 13:31 81 29 160/77 (104) 02/27/18 13:00 76 18 147/75 (99) 02/27/18 12:01 129/62 (84) 02/27/18 12:00 73 14 95 02/27/18 12:00 90 02/27/18 11:30 75 18 145/79 (101) 95 02/27/18 11:00 79 23 153/71 (98) 02/27/18 10:30 74 15 144/67 (92) 02/27/18 10:00 83 02/27/18 10:00 80 22 143/68 (93) (Magnolia Clancy) Review of Systems Constitutional: COMPLAINS OF: Dizziness, DENIES: Fever, Chills Ears, nose, mouth, throat: COMPLAINS OF: Hearing loss Respiratory: DENIES: Hemoptysis Cardiovascular: DENIES: Chest pain Neurologic: COMPLAINS OF: Headache, DENIES: Localized weakness (Magnolia Clancy) Physical Exam General: Ms. Chang is comfortable, in no obvious distress during examination. HEENT: Normocephalic. Hearing loss. Nonicteric sclera. Neck: soft, supple Musculoskeletal: 5/5 in all muscle groups of both upper extremities including deltoid, biceps, triceps and gas tender. In the lower extremities, strength is 5/5 in both iliopsoas, quadriceps, hamstrings, tibialis anterior, gastrocnemius. Neuro: Awake, alert and oriented. Speech is clear and fluent. Can follow single and multi-step commands without apraxia. Cranial nerve: pupil equal, round, and reactive to light. Extra-ocular movements are intact with normal convergence. Facial motor are normal and symmetrical. Other cranial nerves are intact. Sensory examination is intact pinprick in both the upper and lower extremities Deep tendon reflexes are 2+ biceps, triceps, and brachioradialis, bilaterally, in the upper extremities. In the lower extremities, the patellar and Achilles are 2+, bilaterally. There is a bilateral plantar flexion response. Nicolas's sign is negative. There is no clonus. Cerebellar: intact finger to nose bilaterally Lungs: clear, nonlabored breathing, no wheezing Heart: S1, S2 Skin: warm and dry, no cyanosis. (Magnolia Clancy) is alert, awake and oriented to time, place and person. Speech is fluent. Cranial nerve examination: pupils to be equal, round and reactive to light. Extra-ocular movements are intact. Facial motor and sensory function are normal and symmetrical. Gross hearing appears decreased. Mild bleeding from right EAC Sternocleidomastoid and trapezius muscles are symmetrical. Other cranial nerves are intact. Neck is soft and supple with a good range of motion without pain. Muscle strength is normal in all muscle groups of both upper and lower extremities. Sensory examination is intact to light touch and pin prick in both the upper and lower extremities. Deep tendon reflexes are symmetrical in both upper and lower extremities. There is a bilateral plantar flexion response. Cerebellar examination is unremarkable, without deficits. Lungs are clear Heart regular rhythm and rate Skin warm and dry (Price Heard MD) Medications Current Medications Current Medications Medications (Trade) Dose Ordered Sig/Carltoa Route PRN Reason Start Time Stop Time Status Last Admin Dose Admin Sodium Chloride (NS Flush) 2 ml UNSCH PRN IV FLUSH FLUSH AFTER USING IV ACCESS 02/26/18 22:00 Sodium Chloride (NS Flush) 2 ml BID IV FLUSH 02/27/18 09:00 02/27/18 19:46 Acetaminophen (Tylenol) 650 mg Q6H PRN PO PAIN 1-3 OR TEMP >100.4 02/26/18 22:00 Acetaminophen/ Hydrocodone Bitart (Lostant 5-325 Mg) 1 tab Q4H PRN PO PAIN 4-10 02/26/18 22:00 02/28/18 04:45 Morphine Sulfate (Morphine Inj) 2 mg Q2H PRN IV PUSH breakthrough pain 6-10 02/26/18 22:00 Famotidine (Pepcid) 20 mg Q12HR PO 02/27/18 09:00 02/27/18 19:46 Ondansetron HCl (Zofran Inj) 4 mg Q6H PRN IV PUSH NAUSEA OR VOMITING 02/26/18 22:00 02/26/18 23:59 Albuterol Sulfate (Albuterol Neb) 2.5 mg Q2HR NEB PRN INH SOB/WHEEZING 02/26/18 22:00 Miscellaneous Information 1 Q361D XX 02/26/18 22:00 02/26/18 22:00 Chlorhexidine Gluconate (Chlorhexidine 2% Cloth) 3 pack Taper DAILY@04 TOP 02/27/18 04:00 02/23/19 03:59 02/28/18 04:00 Chlorhexidine Gluconate (Chlorhexidine 2% Cloth) 3 pack UNSCH PRN TOP HYGIENIC CARE 02/26/18 22:00 Senna/Docusate Sodium (Aury-Colace) 1 tab BID PO 02/27/18 09:00 02/27/18 09:42 Magnesium Hydroxide (Milk Of Magnesia Liq) 30 ml Q12H PRN PO Mild constipation 02/26/18 22:00 Sennosides (Senokot) 17.2 mg Q12H PRN PO Moderate constipation 02/26/18 22:00 Bisacodyl (Dulcolax Supp) 10 mg DAILY PRN RECTAL SEVERE CONSITIPATION/ IF NPO 02/26/18 22:00 Lactulose (Lactulose Liq) 30 ml DAILY PRN PO SEVERE CONSITIPATION/ IF PO 02/26/18 22:00 Fluoxetine HCl (PROzac) 10 mg DAILY PO 02/27/18 09:00 Lisinopril (Prinivil) 10 mg DAILY PO 02/27/18 09:00 02/27/18 09:42 Labetalol HCl (Trandate Inj) 10 mg Q4H PRN IV PUSH SBP >160 02/26/18 22:15 02/28/18 05:04 Hydralazine HCl (Apresoline) 25 mg Q8H PO 02/28/18 10:00 (Magnolia Clancy) Current Medications Current Medications Lidocaine/ Epinephrine (Xylocaine-Epi 1%-1:100,000 Inj) 30 ml ONCE ONCE INFIL ; Start 02/26/18 at 18:00; Stop 02/26/18 at 18:01; Status DC Labetalol HCl (Trandate Inj) 20 mg ONCE ONCE IV PUSH Last administered on 02/26at 18:00; Start 02/26/18 at 18:00; Stop 02/26/18 at 18:01; Status DC Tetanus/ Diphtheria Toxoids (Tetanus/ Diphtheria Tox Adult) 0.5 ml ONCE ONCE IM Last administered on 02/26/18at 18:00; Start 02/26/18 at 18:00; Stop 02/26/18 at 18:01; Status DC Nicardipine HCl 25 mg/Sodium Chloride 250 ml @ 0 mls/hr TITRATE ONCE IV Last administered on 02/26/18at 19:07; Start 02/26/18 at 18:45; Stop 02/26/18 at 18:46 ; Status DC Morphine Sulfate (Morphine Inj) 2 mg ONCE ONCE IV PUSH ; Start 02/26/18 at 19: 45; Stop 02/26/18 at 19:46; Status DC Ondansetron HCl (Zofran Inj) 4 mg ONCE ONCE IV PUSH Last administered on at 20:28; Start 02/26/18 at 19:45; Stop 02/26/18 at 19:46; Status DC Sodium Chloride (NS Flush) 2 ml UNSCH PRN IV FLUSH FLUSH AFTER USING IV ACCESS ; Start 02/26/18 at 22:00 Sodium Chloride (NS Flush) 2 ml BID IV FLUSH Last administered on 02/28/18at 10: 02; Start 02/27/18 at 09:00 Acetaminophen (Tylenol) 650 mg Q6H PRN PO PAIN 1-3 OR TEMP >100.4 Last administered on 02/28/18at 12:42; Start 02/26/18 at 22:00 Acetaminophen/ Hydrocodone Bitart (Lostant 5-325 Mg) 1 tab Q4H PRN PO PAIN 4-10 Last administered on 02/28/18at 09:51; Start 02/26/18 at 22:00 Morphine Sulfate (Morphine Inj) 2 mg Q2H PRN IV PUSH breakthrough pain 6-10; Start 02/26/18 at 22:00 Famotidine (Pepcid) 20 mg Q12HR PO Last administered on 02/28/18at 09:52; Start 02/27/18 at 09:00 Ondansetron HCl (Zofran Inj) 4 mg Q6H PRN IV PUSH NAUSEA OR VOMITING Last administered on 02/28/18at 09:43; Start 02/26/18 at 22:00 Albuterol Sulfate (Albuterol Neb) 2.5 mg Q2HR NEB PRN INH SOB/WHEEZING; Start 02/26/18 at 22:00 Miscellaneous Information 1 Q361D XX Last administered on 02/26/18at 22:00; Start 02/26/18 at 22:00 Chlorhexidine Gluconate (Chlorhexidine 2% Cloth) 3 pack Taper DAILY@04 TOP Last administered on 02/28/18at 04:00; Start 02/27/18 at 04:00; Stop 02/23/19 at 03:59 Chlorhexidine Gluconate (Chlorhexidine 2% Cloth) 3 pack UNSCH PRN TOP HYGIENIC CARE; Start 02/26/18 at 22:00 Senna/Docusate Sodium (Aury-Colace) 1 tab BID PO Last administered on at 09:52; Start 02/27/18 at 09:00 Magnesium Hydroxide (Milk Of Magnesia Liq) 30 ml Q12H PRN PO Mild constipation ; Start 02/26/18 at 22:00 Sennosides (Senokot) 17.2 mg Q12H PRN PO Moderate constipation; Start 02/26/18 at 22:00 Bisacodyl (Dulcolax Supp) 10 mg DAILY PRN RECTAL SEVERE CONSITIPATION/ IF NPO; Start 02/26/18 at 22:00 Lactulose (Lactulose Liq) 30 ml DAILY PRN PO SEVERE CONSITIPATION/ IF PO; Start 02/26/18 at 22:00 Fluoxetine HCl (PROzac) 10 mg DAILY PO ; Start 02/27/18 at 09:00 Lisinopril (Prinivil) 10 mg DAILY PO Last administered on 02/28/18at 09:53; Start 02/27/18 at 09:00 Nicardipine HCl 25 mg/Sodium Chloride 250 ml @ 50 mls/hr TITRATE PRN IV Blood pressure management; Start 02/26/18 at 22:15; Stop 02/27/18 at 01:49; Status DC Labetalol HCl (Trandate Inj) 10 mg Q4H PRN IV PUSH SBP >160 Last administered on 02/28/18at 12:43; Start 02/26/18 at 22:15 Hydralazine HCl (Apresoline) 25 mg Q8H PO Last administered on 02/28/18at 09:57 ; Start 02/28/18 at 10:00 Acetaminophen/ Hydrocodone Bitart (Lostant 10-325 Mg) 1 tab ONCE ONCE PO Last administered on 02/28/18at 13:42; Start 02/28/18 at 13:00; Stop 02/28/18 at 13:24 ; Status DC (Price Heard MD) Medical Decision Making MDM Remarks 72-year-old female status post slip and fall, mild TBI, stable follow-up CT brain (Magnolia Clancy) Plan Plan Remarks continue nonsurgical management of intracranial hemorrhage neurological exam stable Continue medical management clear to DC from neurosurgical standpoint when medically cleared Orquidea Christopher recommends follow-up with her ENT outpatient (Magnolia Clancy) Attending Statement Cerebral concusion. Continue neuro checks in a serial fashion. I reviewed her follow-up CT of the brain Temporal bone fracture. Continue to.elevate HOV 30 degrees. Watch for CSF leak Continue aggressive pulmonary toilette, nasotracheal suction, and breathing treatments with nebulizers. Nutrition. Oral diet Renal. monitor closely urine output, BUN and creatinine Prior tobacco abuse. Counseled Hypertension. Continue lisinopril 10 mg p.o. daily Endocrine. Monitor serial Acu checks and SSI as needed in detail ID continued to monitor for signs of infection Continue Protonix for stress ulcer prophylaxis Continue Moses hose and SCD's for DVT prophylaxis. The exam, history, and the medical decision-making described in the above note were completed with the assistance of the mid-level provider. I reviewed and agree with the findings presented. I attest that I had a [id number] encounter with the patient on the same day, and personally performed and documented my assessment and findings in the medical record. (Price Heard MD) Magnolia Clancy Feb 28, 2018 10:12 Price Heard MD Feb 28, 2018 16:03
[2018-02-28] MEDS ORDERED: ACETAMINOPHEN/HYDROcodone 325 MG/10 MG TAB PO ONE (13:00)
[2018-03-01] VITALS (15 sets, daily range): BP systolic 155–180; BP diastolic 68–86; PULSE 53–75; RESP 12–16; TEMP 98–98.2; O2SAT 97–98
[2018-03-01] MEDS: hydrALAZINE HCL 25 MG TAB PO SCH ×2 (02:12→09:41)
[2018-03-01] MEDS: ACETAMINOPHEN/HYDROcodone 325 MG/5 MG TAB PO PRN ×4 (02:13→13:27)
[2018-03-01] MEDS: CHLORHEXIDINE GLUCONATE 2 % 1 PACK (2 CLOTHS) TOP SCH (04:00)
[2018-03-01] MEDS: FLUoxetine HCL 10 MG CAP PO SCH (08:04)
[2018-03-01] MEDS: SODIUM CHLORIDE 0.9% FLUSH 10 ML FLUSH IV FLUSH SCH (09:00)
--- NOTE | 2018-03-01 09:00 | HHI.PR ---
Subjective Remarks Follow-up left subdural hematoma February 28, 2018-patient seen and examined, denies any headache, visual impairments. Denies any weakness March 01, 2018-patient seen and examined, still complains of headache this morning. Otherwise stable. Objective Vitals Vital Signs Date Time Temp Pulse Resp B/P (MAP) Pulse Ox O2 Delivery O2 Flow Rate FiO2 03/01/18 05:01 53 174/77 (109) 03/01/18 04:01 59 161/71 (101) 03/01/18 04:00 53 03/01/18 03:01 61 161/72 (101) 03/01/18 02:01 62 167/68 (101) 03/01/18 01:00 65 163/71 (101) 03/01/18 00:01 98.2 60 155/69 (97) 03/01/18 00:00 63 02/28/18 23:00 63 162/70 (100) 02/28/18 22:00 69 162/75 (104) 02/28/18 21:01 71 156/72 (100) 02/28/18 20:01 98.7 75 175/81 (112) 02/28/18 20:00 62 02/28/18 16:00 98.5 52 13 144/68 (93) 97 02/28/18 16:00 52 02/28/18 15:00 54 02/28/18 14:00 53 02/28/18 13:00 68 02/28/18 12:00 71 02/28/18 12:00 98.0 71 17 177/84 (115) 98 02/28/18 11:00 58 02/28/18 10:00 67 02/28/18 09:00 70 I/O 02/28/18 02/28/18 02/28/18 03/01/18 03/01/18 03/01/18 07:00 15:00 23:00 07:00 15:00 23:00 Intake Total 620 ml 900 ml 1060 ml Output Total 1400 ml 4 ml Balance 620 ml -500 ml 1056 ml Intake Oral 620 ml 900 ml 1060 ml IV Total 0 ml 0 ml Output Urine Total 1400 ml 4 ml # Voids 4 # Bowel Movements 1 0 Result Diagram: 02/27/18 0602/27/18606 Imaging Last Impressions Head CT 02/27/18 0600 Signed Impressions: Service Date/Time: Tuesday, February 27, 2018 07:58 - CONCLUSION: 1. Tiny left frontotemporal subdural hemorrhage is essentially unchanged. 2. Tiny punctate right frontal parafalcine hemorrhage. 3. Minimal subarachnoid hemorrhage. Augustine Bobo MD Cervical Spine CT 02/26/18 1750 Signed Impressions: Service Date/Time: Monday, February 26, 2018 18:24 - CONCLUSION: 1. No acute bony abnormalities seen in the cervical spine. 2. Suspected subtle fracturing at the right Rosa temporal bone. 3. Degenerative change in the cervical spine as described above. Giacomo Brantley MD Pelvis X-Ray 02/26/18 0000 Signed Impressions: Service Date/Time: Monday, February 26, 2018 18:42 - CONCLUSION: No definite fracture is seen. If there is continued clinical concern for fracture, a CT could be obtained. Giacomo Brantley MD Lumbar Spine X-Ray 02/26/18 0000 Signed Impressions: Service Date/Time: Monday, February 26, 2018 18:44 - CONCLUSION: Chronic degenerative changes including grade 2 anterior spondylolisthesis of L5 on S1. Giacomo Brantley MD Objective Remarks GENERAL: NAD SKIN: Warm and dry. HEAD: Normocephalic. EYES: No scleral icterus. No injection or drainage. NECK: Supple, trachea midline. No JVD or lymphadenopathy. CARDIOVASCULAR: Regular rate and rhythm without murmurs, gallops, or rubs. RESPIRATORY: Breath sounds equal bilaterally. No accessory muscle use. GASTROINTESTINAL: Abdomen soft, non-tender, nondistended. MUSCULOSKELETAL: No cyanosis, or edema. BACK: Nontender without obvious deformity. No CVA tenderness. Procedures None A/P Problem List: (1) Subdural hematoma ICD Code: I62.00 - Nontraumatic subdural hemorrhage, unspecified Status: Acute Assessment and Plan 72-year-old female with Fall Acute L subdural hematoma Right non-displaced petrous temporal bone fracture Depression Avoid hyponatremia Repeat head CT February 27, 2018, stable and unchanged Appreciate input from neurosurgery, Dr. Heard CT C-spine was negative for acute C-spine fracture Continue fluoxetine 10 mg p.o. daily Tylenol/Lortab as needed for headache Morphine as needed for breakthrough PT to treat and evaluate Hypertension Continue hydralazine 25 mg p.o. every 8 hour and lisinopril 10 mg p.o. daily PROPH: SCDs for DVT prophylaxis. Avoid pharmacologic DVT prophylaxis at this time due to acute subdural hematoma. Famotidine p.o. for stress ulcer prophylaxis Discharge Planning Discharge patient to home Condition on discharge: Improved Regular Diet as tolerated Ad Cami activity Rx written: Hydralazine 25 mg p.o. q. 8 hour Follow-up with primary care physician 1 week Neurosurgery as needed Augustine Dobbs MD Mar 01, 2018 09:00
--- NOTE | 2018-03-01 09:02 | HHI.DS ---
Discharge Summary Admission Date Feb 26, 2018 at 19:31 Discharge Date: Mar 01, 2018 Admitting Diagnosis Subdural hemorrhage. Scalp laceration. Skull fracture. (1) Subdural hematoma ICD Code: I62.00 - Nontraumatic subdural hemorrhage, unspecified Status: Acute Procedures None Brief History - From Admission 72-year-old female with past medical history of hypertension who presents to [facility] emergency department after she slipped and fell and hit her head on tile mino. There was reported loss of consciousness. No seizure activity. No bowel or bladder incontinence. There is repetitive questioning at the scene but GCS 15 on arrival. She is very hard of hearing and her hearing aids were damaged after the fall so difficult to obtain history from her. She was complaining of headache. No nausea, vomiting, photophobia. CT brain demonstrate created a small right frontotemporal subdural hematoma without shift. [facility] has been consulted for admission. CBC/BMP: 02/27/18 0607 02/27/18 0607 Significant Findings Laboratory Tests Test 02/26/18 18:13 02/26/18 23:00 02/27/18 06:07 Monocytes (%) (Auto) 9.9 % (0.0-8.0) Monocytes # (Auto) 1.0 TH/MM3 (0-0.9) 1.0 TH/MM3 (0-0.9) Activated Partial Thromboplast Time 23.8 SEC (24.3-30.1) Blood Urea Nitrogen 24 MG/DL (7-18) 20 MG/DL (7-18) Random Glucose 130 MG/DL (74-106) 166 MG/DL (74-106) Estimat Glomerular Filtration Rate 80 ML/MIN (>89) 88 ML/MIN (>89) White Blood Count 13.5 TH/MM3 (4.0-11.0) Neutrophils (%) (Auto) 80.1 % (16.0-70.0) Neutrophils # (Auto) 10.9 TH/MM3 (1.8-7.7) Imaging Last Impressions Head CT 02/27/18 0600 Signed Impressions: Service Date/Time: Tuesday, February 27, 2018 07:58 - CONCLUSION: 1. Tiny left frontotemporal subdural hemorrhage is essentially unchanged. 2. Tiny punctate right frontal parafalcine hemorrhage. 3. Minimal subarachnoid hemorrhage. Augustine Bobo MD Cervical Spine CT 02/26/18 1750 Signed Impressions: Service Date/Time: Monday, February 26, 2018 18:24 - CONCLUSION: 1. No acute bony abnormalities seen in the cervical spine. 2. Suspected subtle fracturing at the right Rosa temporal bone. 3. Degenerative change in the cervical spine as described above. Giacomo Brantley MD Pelvis X-Ray 02/26/18 0000 Signed Impressions: Service Date/Time: Monday, February 26, 2018 18:42 - CONCLUSION: No definite fracture is seen. If there is continued clinical concern for fracture, a CT could be obtained. Giacomo Brantley MD Lumbar Spine X-Ray 02/26/18 0000 Signed Impressions: Service Date/Time: Monday, February 26, 2018 18:44 - CONCLUSION: Chronic degenerative changes including grade 2 anterior spondylolisthesis of L5 on S1. Giacomo Brantley MD PE at Discharge GENERAL: NAD SKIN: Warm and dry. HEAD: Normocephalic. EYES: No scleral icterus. No injection or drainage. NECK: Supple, trachea midline. No JVD or lymphadenopathy. CARDIOVASCULAR: Regular rate and rhythm without murmurs, gallops, or rubs. RESPIRATORY: Breath sounds equal bilaterally. No accessory muscle use. GASTROINTESTINAL: Abdomen soft, non-tender, nondistended. MUSCULOSKELETAL: No cyanosis, or edema. BACK: Nontender without obvious deformity. No CVA tenderness. Hospital Course While in hospital, patient was treated for: Fall Acute L subdural hematoma Right non-displaced petrous temporal bone fracture Depression Repeat head CT February 27, 2018, stable and unchanged Appreciated input from neurosurgery, Dr. Heard CT C-spine was negative for acute C-spine fracture Treated with fluoxetine 10 mg p.o. daily Tylenol/Lortab as needed for headache Morphine as needed for breakthrough PT to treat and evaluate Hypertension Hydralazine 25 mg p.o. every 8 hour was started and she was continued on her home dose of lisinopril 10 mg p.o. daily PROPH: SCDs for DVT prophylaxis. Avoid pharmacologic DVT prophylaxis at this time due to acute subdural hematoma. Famotidine p.o. for stress ulcer prophylaxis Pt Condition on Discharge: Good Discharge Disposition: Discharge Home Discharge Time: <= 30 minutes Discharge Instructions DIET: Follow Instructions for: Heart Healthy Diet Activities you can perform: Regular-No Restrictions Activities to Avoid: Concussion Sports, Contact Sports Follow up Referrals: Neurosurgery PCP Follow-up - 1 Week New Medications: Tramadol (Tramadol) 50 Mg Tab 50 MG PO Q6H PRN for PAIN, #30 TAB 0 Refills Hydralazine HCl (Hydralazine HCl) 25 Mg Tablet 25 MG PO Q8H for Blood Pressure Management, #90 MG 3 Refills Continued Medications: Alprazolam (Xanax) 0.5 Mg Tab 0.5 MG PO DAILY PRN for ANXIETY, TAB 0 Refills Fluoxetine (Fluoxetine) 10 Mg Tab 10 MG PO DAILY, #30 TAB 0 Refills Lisinopril (Lisinopril) 10 Mg Tab 10 MG PO DAILY, #30 TAB 0 Refills Tramadol (Tramadol) 50 Mg Tab 50 MG PO Q6H PRN for PAIN, TAB 0 Refills Augustine Dobbs MD Mar 01, 2018 09:02
[2018-03-01] MEDS: DOCUSATE SODIUM 50 MG/SENNA 8.6 MG TAB PO SCH (09:40)
[2018-03-01] MEDS: FAMOTIDINE 20 MG TAB PO SCH (09:41)
[2018-03-01] MEDS: LISINOPRIL 10 MG TAB PO SCH (09:41)
[2018-03-01 09:42] LABS: AUTOMATED NEUTROPHIL # 6.8 TH/MM3 (1.8-7.7); BASOPHIL # 0.1 TH/MM3 (0-0.2); BASOPHIL % 0.5 % (0.0-2.0); EOSINOPHIL # 0.1 TH/MM3 (0-0.4); EOSINOPHIL % 1.1 % (0.0-4.0); HEMATOCRIT 42.7 % (35.0-46.0); HEMOGLOBIN 14.1 GM/DL (11.6-15.3); LYMPH % 25.3 % (9.0-44.0); LYMPHOCYTE # 2.7 TH/MM3 (1.0-4.8); MEAN CELL VOLUME 84.1 FL (80.0-100.0); MEAN CORPUSCULAR HEMOGLOBIN 27.7 PG (27.0-34.0); MEAN PLATELET VOLUME 9.1 FL (7.0-11.0); MONOCYTE # 1.1 TH/MM3 (0-0.9); NEUT % 63.1 % (16.0-70.0); PLATELET COUNT 239 TH/MM3 (150-450); RED BLOOD COUNT 5.08 MIL/MM3 (4.00-5.30); RED CELL DISTRIBUTION WIDTH 15.8 % (11.6-17.2); WHITE BLOOD COUNT 10.8 TH/MM3 (4.0-11.0)
[2018-03-01 09:57] LABS: BICARBONATE 26.1 MEQ/L (21.0-32.0); CALCIUM 9.5 MG/DL (8.5-10.1); CREATININE 0.67 MG/DL (0.50-1.00)
[2018-03-01] MEDS ORDERED: TRAM50TA PO (12:18)
--- NOTE | 2018-03-01 15:31 | HHI.NSPN ---
Note Status Status: Progress Note Interval History Diagnosis TBI Interval History Ms. Chang is a 72-year-old female who suffered a slip and fall at the pool deck yesterday hitting her head with positive loss of consciousness. There is no seizure-like activities, tongue biting, bowel or bladder incontinence. She was reported to have a GCS of 15 on arrival. She has chronic hearing loss, her hearing aids were damage after the fall. She has complained of headaches, there was reported blood in her ear canal. CT of her head shows a small right frontotemporal subdural hematoma. She underwent a follow-up CT brain this morning which is completed. Neurosurgery evaluation requested. The patient reports of stable right sided head pain, she denies focal weakness, seizures, vomiting. 02/28: no changes neurologically, still without hearing aids - difficulty hearing currently, patient reports continues to have bleeding in the ear. 03/01. Doing well. Up, ambulating. No focal deficits Labs, Micro, & Vital Signs Results Date Time Temp Pulse Resp B/P (MAP) Pulse Ox O2 Delivery O2 Flow Rate FiO2 03/01/18 13:00 75 03/01/18 12:00 72 03/01/18 12:00 98.0 72 12 180/86 (117) 98 03/01/18 11:00 61 03/01/18 10:00 59 03/01/18 09:00 58 03/01/18 08:00 62 03/01/18 08:00 98.1 62 16 171/73 (105) 97 03/01/18 07:00 56 03/01/18 05:01 53 174/77 (109) 03/01/18 04:01 59 161/71 (101) 03/01/18 04:00 53 03/01/18 03:01 61 161/72 (101) 03/01/18 02:01 62 167/68 (101) 03/01/18 01:00 65 163/71 (101) 03/01/18 00:01 98.2 60 155/69 (97) 03/01/18 00:00 63 02/28/18 23:00 63 162/70 (100) 02/28/18 22:00 69 162/75 (104) 02/28/18 21:01 71 156/72 (100) 02/28/18 20:01 98.7 75 175/81 (112) 02/28/18 20:00 62 02/28/18 16:00 98.5 52 13 144/68 (93) 97 02/28/18 16:00 52 Constitutional Vital Signs Date Time Temp Pulse Resp B/P (MAP) Pulse Ox O2 Delivery O2 Flow Rate FiO2 03/01/18 13:00 75 03/01/18 12:00 72 03/01/18 12:00 98.0 72 12 180/86 (117) 98 03/01/18 11:00 61 03/01/18 10:00 59 03/01/18 09:00 58 03/01/18 08:00 62 03/01/18 08:00 98.1 62 16 171/73 (105) 97 03/01/18 07:00 56 03/01/18 05:01 53 174/77 (109) 03/01/18 04:01 59 161/71 (101) 03/01/18 04:00 53 03/01/18 03:01 61 161/72 (101) 03/01/18 02:01 62 167/68 (101) 03/01/18 01:00 65 163/71 (101) 03/01/18 00:01 98.2 60 155/69 (97) 03/01/18 00:00 63 02/28/18 23:00 63 162/70 (100) 02/28/18 22:00 69 162/75 (104) 02/28/18 21:01 71 156/72 (100) 02/28/18 20:01 98.7 75 175/81 (112) 02/28/18 20:00 62 02/28/18 16:00 98.5 52 13 144/68 (93) 97 02/28/18 16:00 52 Physical Exam Dimitry Chang is alert, awake and oriented to time, place and person. Speech is fluent. Cranial nerve examination: pupils to be equal, round and reactive to light. Extra-ocular movements are intact. Facial motor and sensory function are normal and symmetrical. Gross hearing appears decreased. Mild bleeding from right EAC Sternocleidomastoid and trapezius muscles are symmetrical. Other cranial nerves are intact. Neck is soft and supple with a good range of motion without pain. Muscle strength is normal in all muscle groups of both upper and lower extremities. Sensory examination is intact to light touch and pin prick in both the upper and lower extremities. Deep tendon reflexes are symmetrical in both upper and lower extremities. There is a bilateral plantar flexion response. Cerebellar examination is unremarkable, without deficits. Lungs are clear Heart regular rhythm and rate Skin warm and dry Medications Current Medications Current Medications Lidocaine/ Epinephrine (Xylocaine-Epi 1%-1:100,000 Inj) 30 ml ONCE ONCE INFIL ; Start 02/26/18 at 18:00; Stop 02/26/18 at 18:01; Status DC Labetalol HCl (Trandate Inj) 20 mg ONCE ONCE IV PUSH Last administered on 02/26at 18:00; Start 02/26/18 at 18:00; Stop 02/26/18 at 18:01; Status DC Tetanus/ Diphtheria Toxoids (Tetanus/ Diphtheria Tox Adult) 0.5 ml ONCE ONCE IM Last administered on 02/26/18at 18:00; Start 02/26/18 at 18:00; Stop 02/26/18 at 18:01; Status DC Nicardipine HCl 25 mg/Sodium Chloride 250 ml @ 0 mls/hr TITRATE ONCE IV Last administered on 02/26/18at 19:07; Start 02/26/18 at 18:45; Stop 02/26/18 at 18:46 ; Status DC Morphine Sulfate (Morphine Inj) 2 mg ONCE ONCE IV PUSH ; Start 02/26/18 at 19: 45; Stop 02/26/18 at 19:46; Status DC Ondansetron HCl (Zofran Inj) 4 mg ONCE ONCE IV PUSH Last administered on at 20:28; Start 02/26/18 at 19:45; Stop 02/26/18 at 19:46; Status DC Sodium Chloride (NS Flush) 2 ml UNSCH PRN IV FLUSH FLUSH AFTER USING IV ACCESS ; Start 02/26/18 at 22:00; Stop 03/01/18 at 14:09; Status DC Sodium Chloride (NS Flush) 2 ml BID IV FLUSH Last administered on 03/01/18at 09: 00; Start 02/27/18 at 09:00; Stop 03/01/18 at 14:09; Status DC Acetaminophen (Tylenol) 650 mg Q6H PRN PO PAIN 1-3 OR TEMP >100.4 Last administered on 02/28/18at 12:42; Start 02/26/18 at 22:00; Stop 03/01/18 at 14:09 ; Status DC Acetaminophen/ Hydrocodone Bitart (Girard 5-325 Mg) 1 tab Q4H PRN PO PAIN 4-10 Last administered on 03/01/18at 13:27; Start 02/26/18 at 22:00; Stop 03/01/18 at 14:09; Status DC Morphine Sulfate (Morphine Inj) 2 mg Q2H PRN IV PUSH breakthrough pain 6-10; Start 02/26/18 at 22:00; Stop 03/01/18 at 14:09; Status DC Famotidine (Pepcid) 20 mg Q12HR PO Last administered on 03/01/18at 09:41; Start 02/27/18 at 09:00; Stop 03/01/18 at 14:09; Status DC Ondansetron HCl (Zofran Inj) 4 mg Q6H PRN IV PUSH NAUSEA OR VOMITING Last administered on 02/28/18at 09:43; Start 02/26/18 at 22:00; Stop 03/01/18 at 14:09 ; Status DC Albuterol Sulfate (Albuterol Neb) 2.5 mg Q2HR NEB PRN INH SOB/WHEEZING; Start 02/26/18 at 22:00; Stop 03/01/18 at 14:09; Status DC Miscellaneous Information 1 [id number] Last administered on 02/26/18at 22:00; Start 02/26/18 at 22:00; Stop 03/01/18 at 14:09; Status DC Chlorhexidine Gluconate (Chlorhexidine 2% Cloth) 3 pack Taper DAILY@04 TOP Last administered on 03/01/18at 04:00; Start 02/27/18 at 04:00; Stop 03/01/18 at 14:09; Status DC Chlorhexidine Gluconate (Chlorhexidine 2% Cloth) 3 pack UNSCH PRN TOP HYGIENIC CARE; Start 02/26/18 at 22:00; Stop 03/01/18 at 14:09; Status DC Senna/Docusate Sodium (Aury-Colace) 1 tab BID PO Last administered on at 09:40; Start 02/27/18 at 09:00; Stop 03/01/18 at 14:09; Status DC Magnesium Hydroxide (Milk Of Magnesia Liq) 30 ml Q12H PRN PO Mild constipation ; Start 02/26/18 at 22:00; Stop 03/01/18 at 14:09; Status DC Sennosides (Senokot) 17.2 mg Q12H PRN PO Moderate constipation; Start 02/26/18 at 22:00; Stop 03/01/18 at 14:09; Status DC Bisacodyl (Dulcolax Supp) 10 mg DAILY PRN RECTAL SEVERE CONSITIPATION/ IF NPO; Start 02/26/18 at 22:00; Stop 03/01/18 at 14:09; Status DC Lactulose (Lactulose Liq) 30 ml DAILY PRN PO SEVERE CONSITIPATION/ IF PO; Start 02/26/18 at 22:00; Stop 03/01/18 at 14:09; Status DC Fluoxetine HCl (PROzac) 10 mg DAILY PO ; Start 02/27/18 at 09:00; Stop 03/01/18 at 14:09; Status DC Lisinopril (Prinivil) 10 mg DAILY PO Last administered on 03/01/18at 09:41; Start 02/27/18 at 09:00; Stop 03/01/18 at 14:09; Status DC Nicardipine HCl 25 mg/Sodium Chloride 250 ml @ 50 mls/hr TITRATE PRN IV Blood pressure management; Start 02/26/18 at 22:15; Stop 02/27/18 at 01:49; Status DC Labetalol HCl (Trandate Inj) 10 mg Q4H PRN IV PUSH SBP >160 Last administered on 02/28/18at 12:43; Start 02/26/18 at 22:15; Stop 03/01/18 at 14:09; Status DC Hydralazine HCl (Apresoline) 25 mg Q8H PO Last administered on 03/01/18at 09:41 ; Start 02/28/18 at 10:00; Stop 03/01/18 at 14:09; Status DC Acetaminophen/ Hydrocodone Bitart (Girard 10-325 Mg) 1 tab ONCE ONCE PO Last administered on 02/28/18at 13:42; Start 02/28/18 at 13:00; Stop 02/28/18 at 13:24 ; Status DC Attending Statement 72-year-old female status post slip and fall, mild TBI, stable follow-up CT brain Cerebral concusion. Continue neuro checks. Stable for discharge home Temporal bone fracture. Noevidence of CSF leak Continue aggressive pulmonary toilette, nasotracheal suction, and breathing treatments with nebulizers. Nutrition. Tolerating Oral diet Renal. monitor closely urine output, BUN and creatinine Prior tobacco abuse. Counseled Hypertension. Continue lisinopril 10 mg p.o. daily Endocrine. Monitor serial Acu checks and SSI as needed in detail ID continued to monitor for signs of infection Continue Protonix for stress ulcer prophylaxis Price Heard MD Mar 01, 2018 15:31
== END 2018-03-01 14:00 | disposition home or self-care (01) | DRG 84 ==
LOC: NEPD 17:29 → NEDA 19:31 → HIMW 22:50
PROVIDERS: ADMIT Hospitalist; ATTEND Hospitalist
DX: S06.5X9A Traumatic subdural hemorrhage with loss of consciousness of unspecified duration, initial encounter (principal); H92.21 Otorrhagia, right ear; I10 Essential (primary) hypertension; S02.19XA Other fracture of base of skull, initial encounter for closed fracture; R40.2412 Glasgow coma scale score 13-15, at arrival to emergency department; M19.90 Unspecified osteoarthritis, unspecified site; H91.90 Unspecified hearing loss, unspecified ear; F41.9 Anxiety disorder, unspecified; F32.9 Major depressive disorder, single episode, unspecified; W01.0XXA Fall on same level from slipping, tripping and stumbling without subsequent striking against object, initial encounter; Y92.34 Swimming pool (public) as the place of occurrence of the external cause; Z87.891 Personal history of nicotine dependence; Z96.659 Presence of unspecified artificial knee joint
CPT/HCPCS: 70450; 72100; 72125; 72170; 80048; 85025; 85610; 85730; 86850; 86900; 86901; 87641; 90471; 90714; 96365; 96375; J2405; J7050